=== PATIENT | male | born 1935 | race American Indian/Alaskan Native ===

== ENCOUNTER 2020-05-03 15:16 | Inpatient (IN) | payer MEDICARE ==
[2020-05-03] MEDS ORDERED: HYDROcodone/ACETAMINOPHEN 5-325 MG TAB PO ONE (16:15)
--- NOTE | 2020-05-03 16:20 | Emergency Department Report ---
ED Fall HPI - General Chief Complaint: Fall Stated Complaint: LT HIP PAIN Time Seen by Provider: 05/03/20 16:13 Source: patient Mode of arrival: Stretcher Limitations: No Limitations - History of Present Illness Initial Comments: CC: "I slipped and fell in the bathroom." HPI: This is an 85 yo female with hx of HTN DM who presents with head laceration and left hip pain after slipping on rug in bathroom. His son called 911 for assistance. He has moderately severe hip pain. He has pain with movement. He has difficulty moving the extremity. He has small amount of bleeding at the left posterior portion of the scalp. Patient struck his head on the tile floor. No LOC. Not on anticoagulation. Takes daily aspirin. Mr. Milian lives with his and son. Complaint: fall -: Sudden, This afternoon Fall From: standing When Fall Occurred: just prior to arrival Fall Witnessed: yes, by family Place Fall Occurred: home Loss of Consciousness: none Prolonged Down Time?: no Symptoms Prior to Fall: none Location: head, other (Left hip) Location - Extremities: Left: Leg (Left hip) Severity: moderate Quality: aching Context: tripped/slipped Associated Symptoms: denies - Related Data Allergies Allergy/AdvReac Type Severity Reaction Status Date / Time No Known Allergies Allergy Verified 05/03/20 16:08 ED Review of Systems ROS: Stated complaint: LT HIP PAIN Other details as noted in HPI Comment: All other systems reviewed and negative Constitutional: denies: fever, malaise Respiratory: denies: cough Cardiovascular: denies: chest pain Gastrointestinal: denies: abdominal pain Neurological: denies: headache, numbness, paresthesias ED Past Medical Hx - Past Medical History Previous Medical History?: Yes Hx Hypertension: Yes Hx Diabetes: Yes - Family History Family history: no significant - Social History Smoking Status: Former Smoker Substance Use Type: None ED Physical Exam - General Limitations: No Limitations General appearance: alert, in no apparent distress, other (Pleasant GCS 15 alert and oriented x4) - Head Head exam: Present: atraumatic, normocephalic, other (Left parietal scalp 1 cm puncture wound without any bleeding) - Eye Eye exam: Present: normal appearance - ENT ENT exam: Present: mucous membranes moist - Neck Neck exam: Present: normal inspection, full ROM - Respiratory Respiratory exam: Present: normal lung sounds bilaterally. Absent: respiratory distress, wheezes, rales, stridor - Cardiovascular Cardiovascular Exam: Present: regular rate, normal rhythm, normal heart sounds. Absent: systolic murmur, diastolic murmur, rubs, gallop - GI/Abdominal GI/Abdominal exam: Present: soft, normal bowel sounds. Absent: distended, tenderness, guarding, rebound - Rectal Rectal exam: Present: deferred - Expanded Lower Extremity Exam Left Hip exam: Present: tenderness (Patient is unable to flex at the left hip). Absent: swelling, abrasion, laceration, ecchymosis Upper Leg exam: Present: normal inspection, full ROM. Absent: tenderness, swelling Knee exam: Present: normal inspection, full ROM Lower Leg exam: Present: normal inspection, full ROM Ankle exam: Present: normal inspection, full ROM Foot/Toe exam: Present: normal inspection, full ROM Neuro vascular tendon exam: Present: no vascular compromise - Back Exam Back exam: Present: normal inspection - Neurological Exam Neurological exam: Present: alert, oriented X3 - Psychiatric Psychiatric exam: Present: normal affect, normal mood - Skin Skin exam: Present: warm, dry, intact, normal color. 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 Closed left femoral neck fracture: Dr. Figueroa orthopedic surgeon consulted. Extremity is neurovascularly intact 2. small puncture scalp wound, suture repair not indicated Critical care attestation.: If time is entered above; I have spent that time in minutes in the direct care of this critically ill patient, excluding procedure time. ED Disposition Clinical Impression: Closed fracture of neck of left femur, Scalp wound Disposition: OP ADMIT IP TO THIS HOSP Is pt being admited?: Yes Does the pt Need Aspirin: No Condition: Stable
--- NOTE | 2020-05-03 17:12 | XRay Report ---
LEFT HIP 3 VIEW(S) INDICATION / CLINICAL INFORMATION: Fall COMPARISON: None available. FINDINGS: Suboptimal examination. BONES / JOINT(S): There is a small linear lucency extending from the medial aspect of the left femora l neck and potentially extending to the lateral femoral head. Moderate to advanced bilateral femoroac etabular joint degenerative arthrosis. SOFT TISSUES: No significant abnormality. ADDITIONAL FINDINGS: None. IMPRESSION: 1. Small linear lucency extending through the left femoral neck is suspicious for nondisplaced fractu re. Signer Name: Fady Funes MD Signed: 05/03/2020 5:07 PM Workstation Name: [id number]
[2020-05-03] MEDS ORDERED: ONDANSETRON 4 MG/2 ML INJ IV ONE (17:31)
[2020-05-03] MEDS ORDERED: MORPHINE 4 MG/1 ML INJ IV ONE (17:31)
[2020-05-03 18:27] LABS: Hematocrit 41.2 % (35.5-45.6); Hemoglobin 14.5 gm/dl (11.8-15.2); Mean Corpuscular HGB Conc 35 % (32-34); Mean Corpuscular Volume 101 fl (84-94); Red Blood Count 4.06 M/mm3 (3.65-5.03); Red Cell Distribution Width 14.6 % (13.2-15.2)
[2020-05-03 18:33] LABS: Platelet Count 99 K/mm3 (140-440)
[2020-05-03 18:35] LABS: INR 1.14 (0.87-1.13); Partial Thromboplastin Time 27.1 Sec. (24.2-36.6)
--- NOTE | 2020-05-03 18:43 | XRay Report ---
CHEST 1 VIEW 05/03/2020 5:28 PM INDICATION / CLINICAL INFORMATION: Fall. COMPARISON: None available. FINDINGS: SUPPORT DEVICES: None. HEART / MEDIASTINUM: No significant abnormality. LUNGS / PLEURA: No significant pulmonary or pleural abnormality. No pneumothorax. ADDITIONAL FINDINGS: No significant additional findings. IMPRESSION: No acute cardiopulmonary abnormality. Signer Name: Fady Funes MD Signed: 05/03/2020 6:39 PM Workstation Name: [id number]
[2020-05-03 18:49] LABS: Alanine Aminotransferase 21 units/L (7-56); Albumin 3.9 g/dL (3.9-5); BUN/Creatinine Ratio 18; Blood Urea Nitrogen 23 mg/dL (9-20); Calcium 9.4 mg/dL (8.4-10.2); Hemolysis Index 9
[2020-05-03] MEDS ORDERED: MORPHINE 4 MG/1 ML INJ IV PRN (18:55)
[2020-05-03] MEDS ORDERED: oxyCODONE /ACETAMINOPHEN 5-325MG TAB PO PRN (18:55)
[2020-05-03] MEDS ORDERED: ONDANSETRON 4 MG/2 ML INJ IV PRN (18:55)
[2020-05-03] MEDS ORDERED: ACETAMINOPHEN 325 MG TAB PO PRN (18:55)
[2020-05-03] MEDS ORDERED: ALBUTEROL 2.5 MG/3 ML NEBU IH PRN (18:55)
--- NOTE | 2020-05-03 18:56 | Cat Scan Report ---
CT PELVIS AND LEFT HIP WITHOUT CONTRAST INDICATION / CLINICAL INFORMATION: femoral neck fracture. TECHNIQUE: Axial CT images were obtained through the pelvis and left hip without contrast. All CT scans at this location are performed using CT dose reduction for ALARA by means of automated exposure control. COMPARISON: None available. FINDINGS: There is a nondisplaced fracture of the left femoral neck which extends from the basicervic al region medially to the subcapital region laterally. No additional fractures are seen. There is no dislocation. Moderate to advanced bilateral femoroacetabular joint degenerative arthrosis is identifi ed. There is subcutaneous inflammation/edema overlying the left hip. Evaluation of the intrapelvic st ructures demonstrates severe prostatomegaly and moderate to severe calcific atherosclerosis. IMPRESSION: 1. Nondisplaced left femoral neck fracture as described above. 2. Prostatomegaly. Signer Name: Fady Funes MD Signed: 05/03/2020 6:52 PM Workstation Name: [id number]
--- NOTE | 2020-05-03 18:56 | History and Physical Report ---
History of Present Illness Chief complaint: I slipped and fell down History of present illness: 85 YO Male with HTN, DM, Severe Malnutrition, Osteopenia presents to ED for evaluation. PT states that he slipped on a rug in his bathroom and landed on his left side. Patient states that he felt immediate pain in his left hip and was unable to stand and experienced difficulty moving his left leg. EMS notified and upon arrival the patient was found to be in distress and subsequently transported to [facility] for further care and evaluation of the aforementioned symptoms. Patient seen and evaluated in the emergency department. Lab and imaging studies reviewed. Patient underwent hip x-ray which revealed a left hip fracture. Orthopedic surgery service consulted in ED. Patient admitted to surgical floor for further care and evaluation. Surgical intervention as per surgical team. Patient denies fever, chills, chest pain, palpitations, productive cough, skin rash, recent ill contacts, loss of consciousness, seizur e, loss of bowel/bladder continence, recent ill contacts, or known exposure to COVID-19. No prior admission for review. No medication listed at time of admission for reconciliation. Advanced care planning conducted in ED. Past History Past Medical History: diabetes, hypertension Past Surgical History: No surgical history, Other (Reviewed) Social history: , lives with family. denies: smoking, alcohol abuse, prescription drug abuse Family history: diabetes, hypertension Medications and Allergies Allergies Allergy/AdvReac Type Severity Reaction Status Date / Time No Known Allergies Allergy Verified 05/03/20 16:08 Active Meds: Active Medications Acetaminophen (Tylenol) 650 mg PO Q4H PRN PRN Reason: Pain MILD(1-3)/Fever >100.5/GALLO Albuterol (Proventil) 2.5 mg IH Q4HRT PRN PRN Reason: Shortness Of Breath Ondansetron HCl (Zofran) 4 mg IV Q8H PRN PRN Reason: Nausea And Vomiting Sodium Chloride (Sodium Chloride Flush Syringe 10 Ml) 10 ml IV BID DELIA Sodium Chloride (Sodium Chloride Flush Syringe 10 Ml) 10 ml IV PRN PRN PRN Reason: LINE FLUSH Review of Systems Constitutional: no weight loss, no weight gain, no fever, no chills Ears, nose, mouth and throat: no ear pain, no ear discharge, no decreased hearing Cardiovascular: no chest pain, no orthopnea, no palpitations, no rapid/irregular heart beat, no syncope, no lightheadedness Respiratory: no cough, no shortness of breath, no dyspnea on exertion Gastrointestinal: no abdominal pain, no nausea, no vomiting, no diarrhea, no coffee ground emesis Genitourinary Male: no hematuria, no flank pain, no discharge, no urinary hesitancy, no incontinence Rectal: no pain, no incontinence Musculoskeletal: other (Left hip pain), no neck pain, no shooting leg pain Integumentary: no rash, no pruritis, no redness, no sores, no wounds Neurological: no head injury, no paralysis, no parathesias, no tingling, no seizures, no tremors, no lack of coordination Psychiatric: no anxiety, no sleep disturbances, no insomnia, no change in appetite, no change in libido, no suicidal ideation Endocrine: no cold intolerance, no polyphagia, no polydipsia, no nocturia, no flushing Hematologic/Lymphatic: no easy bruising, no easy bleeding Exam - Constitutional Vitals: Temp Pulse Resp BP Pulse Ox 99.2 F 117 H 14 163/87 97 05/03/20 15:20 05/03/20 15:20 05/03/20 15:20 05/03/20 15:20 05/03/20 15:20 General appearance: Present: mild distress, cachectic - EENT Eyes: Present: PERRL ENT: hearing intact, clear oral mucosa - Neck Neck: Present: supple, normal ROM - Respiratory Respiratory effort: normal Respiratory: bilateral: CTA - Cardiovascular Heart Sounds: Present: S1 & S2. Absent: rub, click - Extremities Extremities: pulses symmetrical, No edema Extremity abnormal: other (Left hip pain) Peripheral Pulses: within normal limits - Abdominal General gastrointestinal: Present: soft, non-tender, non-distended, normal bowel sounds Male genitourinary: Present: normal - Integumentary Integumentary: Present: clear, warm, dry - Musculoskeletal Musculoskeletal: gait normal, strength equal bilaterally - Psychiatric Psychiatric: appropriate mood/affect, intact judgment & insight - Neurologic Neurologic: CNII-XII intact, moves all extremities Results - Labs CBC & Chem 7: 05/03/20 18:04 05/03/20 18:04 Labs: Abnormal lab results 05/03/20 05/03/20 05/03/20 Range/Units 18:04 18:04 18:04 MCV 101 H (84-94) fl MCH 36 H (28-32) pg MCHC 35 H (32-34) % Plt Count 99 L (140-440) K/mm3 INR 1.14 H (0.87-1.13) Carbon Dioxide 19 L (22-30) mmol/L BUN 23 H (9-20) mg/dL Glucose 121 H (75-100) mg/dL Assessment and Plan - Patient Problems (1) Closed fracture of neck of left femur Current Visit: Yes Status: Acute Qualifiers: Encounter type: initial encounter Qualified Code(s): S72.002A - Fracture of unspecified part of neck of left femur, initial encounter for closed fracture Plan to address problem: Pain control, orthopedic surgery service consulted, surgery as per orthopedic surgery team. Nonweightbearing to left lower extremity. (2) Hypertension Current Visit: Yes Status: Acute Qualifiers: Hypertension type: essential hypertension Qualified Code(s): I10 - Essential (primary) hypertension Plan to address problem: Monitor blood pressure every shift, continue medical management. (3) Diabetes Current Visit: Yes Status: Acute Plan to address problem: Sliding scale insulin therapy, Accu-Chek, consistent carbohydrate diet, hypoglycemia protocol. (4) Severe malnutrition Current Visit: Yes Status: Acute Plan to address problem: Increase protein intake, dietary supplementation. (5) DVT prophylaxis Current Visit: Yes Status: Acute Plan to address problem: SCD to bilateral lower extremities while in bed, anticoagulation as per orthopedic surgery service. (6) Advance care planning Current Visit: Yes Status: Acute Plan to address problem: Disease education conducted, patient is full code, prognosis discussed, patient acknowledges understanding and agreement with care plan, +30 minutes.
[2020-05-03] MEDS ORDERED: DEXTROSE 50% IN WATER (25GM) 50 ML SYRINGE IV PRN (19:46)
[2020-05-03 21:16] LABS: Basophils % (Manual) 0 % (0.0-1.8); Eosinophils % (Manual) 0 % (0.0-4.3); Total Cells Counted 100
[2020-05-03 21:17] LABS: Ovalocytes Rare; Platelet Estimate Consistent w Auto
[2020-05-03] MEDS: INSULIN LISPRO 100 UNIT/ML VIAL 3 mL SUB-Q SCH (22:16)
[2020-05-03] MEDS: SODIUM CHLORIDE 0.9% 1000 ML 1,000 ML IV SCH (22:25)
[2020-05-04 05:08] LABS: BUN/Creatinine Ratio 18; Blood Urea Nitrogen 21 mg/dL (9-20); Calcium 8.7 mg/dL (8.4-10.2); Hemolysis Index 1
[2020-05-04] MEDS: INSULIN LISPRO 100 UNIT/ML VIAL 3 mL SUB-Q SCH ×5 (07:30→21:58)
[2020-05-04] MEDS: SODIUM CHLORIDE 0.9% 1000 ML 1,000 ML IV SCH (07:39)
[2020-05-04] MEDS: PRAZOSIN 1 MG CAP PO SCH ×2 (10:17→22:28)
[2020-05-04] MEDS ORDERED: LACTATED RINGERS 1,000 ML ONE (14:21)
[2020-05-04] MEDS ORDERED: ONDANSETRON 4 MG/2 ML INJ IV PRN (14:46)
[2020-05-04] MEDS ORDERED: HYDROmorphone 1 MG/1 ML INJ IV PRN ×2 (14:46)
--- NOTE | 2020-05-04 14:48 | Anesthesia Day of Surgery ---
Anesthesia Day of Surgery - Day of Surgery Patient Examined: Yes Patient H&P Reviewed: Yes Patient is NPO: Yes
--- NOTE | 2020-05-04 14:49 | Anesthesia Consultation ---
Anesthesia Consult and Med Hx Date of service: 05/04/20 - Airway Anesthetic Teeth Evaluation: Crowns ROM Head & Neck: Adequate Mental/Hyoid Distance: Adequate Mallampati Class: Class II Intubation Access Assessment: Good - Pre-Operative Health Status ASA Pre-Surgery Classification: ASA3 Proposed Anesthetic Plan: General (SAB; GA if needed), Spinal - Pulmonary Hx Respiratory Symptoms: No (+2FS) - Cardiovascular System Hx Hypertension: Yes - Central Nervous System Hx Psychiatric Problems: No - Endocrine Hx Non-Insulin Dependent Diabetes: Yes
[2020-05-04] MEDS ORDERED: propofoL 200 MG/20 ML VIAL IV ONE (14:50)
[2020-05-04] MEDS: LACTATED RINGERS 1,000 ML IV SCH (15:00)
[2020-05-04] MEDS ORDERED: ceFAZolin/STERILE WATER 2 GM/20 ML SYRINGE IV NR (15:00)
--- NOTE | 2020-05-04 15:16 | Progress Note ---
Assessment and Plan - Patient Problems (1) Closed fracture of neck of left femur Current Visit: Yes Status: Acute Qualifiers: Encounter type: initial encounter Qualified Code(s): S72.002A - Fracture of unspecified part of neck of left femur, initial encounter for closed fracture Plan to address problem: - Orthopedic surgery consulted - Surgical intervention planned 05/04, and Ancef 2 mg preop - Nonweightbearing of left lower extremity - 05/[address] shows there is a nondisplaced fracture of the left femoral neck which extends from the basicervical region medially to the subcapital region laterally. No additional fractures are seen. There is no dislocation. 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 There is subcutaneous inflammation/edema overlying the left hip. Evaluation of the intrapelvic structures demonstrates severe prostatomegaly and moderate to severe calcific atherosclerosis. Prostatomegaly. - 05/03 Left hip xray shows Small linear lucency extending through the left femoral neck is suspicious for nondisplaced fracture. - 05/03 CT pelvis shows there is a nondisplaced fracture of the left femoral neck which extends from the basicervical region medially to the subcapital region laterally. No additional fractures are seen. There is no dislocation. 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 There is subcutaneous inflammation/edema overlying the left hip. Evaluation of the intrapelvic structures demonstrates severe prostatomegaly and moderate to severe calcific atherosclerosis. Prostatomegaly. (2) Scalp wound Current Visit: Yes Status: Acute Qualifiers: Open wound type: laceration Plan to address problem: -Sustained from ground-level fall prior to admit -Dressing changes per nursing (3) Diabetes Current Visit: Yes Status: Chronic Plan to address problem: -Hemoglobin A1c pending -Accu-Cheks AC at bedtime -SSI -CC diet when NPO -Hypoglycemia protocol -Patient states he has been off of his glipizide since 2018 per PCP (4) Hypertension Current Visit: Yes Status: Acute Qualifiers: Hypertension type: essential hypertension Qualified Code(s): I10 - Essential (primary) hypertension Plan to address problem: -Blood pressure monitor per protocol -We will restart Cozaar as needed (5) Severe malnutrition Current Visit: Yes Status: Acute Plan to address problem: -Increase protein intake -Dietary supplementation when able to restart diet -NTR consult (6) HLD (hyperlipidemia) Current Visit: Yes Status: Chronic Plan to address problem: -Started on home statin -Denies history of VT x2 however holding aspirin at this time in setting of pending orthopedic surgery (7) DVT prophylaxis Current Visit: Yes Status: Acute Plan to address problem: - SCDs to bilateral LE -Holding chemical prophylaxis in setting of pending orthopedic surgery. History Interval history: 85 YO Male with HTN, DM, Severe Malnutrition, Osteopenia, VT x2 (1973, 1977) presents to ED for evaluation on on 05/03 after he slipped on a rug in his bathroom and landed on his left side where he felt immediate pain in his left hip and was unable to stand and experienced difficulty moving his left leg. Patient underwent hip x-ray which revealed a left hip fracture. Orthopedic surgery service consulted in ED. Patient admitted to surgical floor for further care and evaluation. He is scheduled for a surgical intervention as per surgical team at 3 PM.. The time of my exam he only complains of pain on his left side with laying flat. Hospitalist Physical - Constitutional Vitals: Temp Pulse Resp BP Pulse Ox 97.1 F L 64 19 96/57 100 05/04/20 11:00 05/04/20 11:00 05/04/20 11:00 05/04/20 11:00 05/04/20 11:00 General appearance: Present: no acute distress, cachectic - EENT Eyes: Present: EOM intact ENT: hearing decreased - Neck Neck: Present: supple, normal ROM - Respiratory Respiratory effort: normal Respiratory: bilateral: CTA - Cardiovascular Rhythm: regular Heart Sounds: Present: S1 & S2. Absent: systolic murmur, diastolic murmur - Extremities Extremities: no ischemia, pulses intact, pulses symmetrical, No edema, normal temperature, normal color Extremity abnormal: other (Painful left lower extremity with movement) Peripheral Pulses: within normal limits - Abdominal General gastrointestinal: soft, non-tender, non-distended, normal bowel sounds - Integumentary Integumentary: Present: clear, warm, dry - Psychiatric Psychiatric: appropriate mood/affect, memory intact - Neurologic Neurologic: CNII-XII intact, no focal deficits, no moves all extremities (Painful movement to left lower extremity) Results - Labs CBC & Chem 7: 05/03/20 18:04 05/04/20 04:09 Labs: Laboratory Last Values WBC 7.3 K/mm3 (4.5-11.0) 05/03/20 18:04 RBC 4.06 M/mm3 (3.65-5.03) 05/03/20 18:04 Hgb 14.5 gm/dl (11.8-15.2) 05/03/20 18:04 Hct 41.2 % (35.5-45.6) 05/03/20 18:04 MCV 101 fl (84-94) H 05/03/20 18:04 MCH 36 pg (28-32) H 05/03/20 18:04 MCHC 35 % (32-34) H 05/03/20 18:04 RDW 14.6 % (13.2-15.2) 05/03/20 18:04 Plt Count 99 K/mm3 (140-440) L 05/03/20 18:04 Add Manual Diff Complete 05/03/20 18:04 Total Counted 100 05/03/20 18:04 Seg Neutrophils % Account Planner 05/03/20 18:04 Seg Neuts % (Manual) 90.0 % (40.0-70.0) H 05/03/20 18:04 Band Neutrophils % 0 % 05/03/20 18:04 Lymphocytes % (Manual) 5.0 % (13.4-35.0) L 05/03/20 18:04 Reactive Lymphs % (Man) 0 % 05/03/20 18:04 Monocytes % (Manual) 5.0 % (0.0-7.3) 05/03/20 18:04 Eosinophils % (Manual) 0 % (0.0-4.3) 05/03/20 18:04 Basophils % (Manual) 0 % (0.0-1.8) 05/03/20 18:04 Metamyelocytes % 0 % 05/03/20 18:04 Myelocytes % 0 % 05/03/20 18:04 Promyelocytes % 0 % 05/03/20 18:04 Blast Cells % 0 % 05/03/20 18:04 Nucleated RBC % Not Reportable 05/03/20 18:04 Seg Neutrophils # Man 6.6 K/mm3 (1.8-7.7) 05/03/20 18:04 Band Neutrophils # 0.0 K/mm3 05/03/20 18:04 Lymphocytes # (Manual) 0.4 K/mm3 (1.2-5.4) L 05/03/20 18:04 Abs React Lymphs (Man) 0.0 K/mm3 05/03/20 18:04 Monocytes # (Manual) 0.4 K/mm3 (0.0-0.8) 05/03/20 18:04 Eosinophils # (Manual) 0.0 K/mm3 (0.0-0.4) 05/03/20 18:04 Basophils # (Manual) 0.0 K/mm3 (0.0-0.1) 05/03/20 18:04 Metamyelocytes # 0.0 K/mm3 05/03/20 18:04 Myelocytes # 0.0 K/mm3 05/03/20 18:04 Promyelocytes # 0.0 K/mm3 05/03/20 18:04 Blast Cells # 0.0 K/mm3 05/03/20 18:04 WBC Morphology Not Reportable 05/03/20 18:04 Hypersegmented Neuts Not Reportable 05/03/20 18:04 Hyposegmented Neuts Not Reportable 05/03/20 18:04 Hypogranular Neuts Not Reportable 05/03/20 18:04 Smudge Cells Not Reportable 05/03/20 18:04 Toxic Granulation Not Reportable 05/03/20 18:04 Toxic Vacuolation Not Reportable 05/03/20 18:04 Dohle Bodies Not Reportable 05/03/20 18:04 Pelger-Huet Anomaly Not Reportable 05/03/20 18:04 Ganga Rods Not Reportable 05/03/20 18:04 Platelet Estimate Consistent w auto 05/03/20 18:04 Clumped Platelets Not Reportable 05/03/20 18:04 Plt Clumps, EDTA Not Reportable 05/03/20 18:04 Large Platelets Not Reportable 05/03/20 18:04 Giant Platelets Not Reportable 05/03/20 18:04 Platelet Satelliting Not Reportable 05/03/20 18:04 Plt Morphology Comment Not Reportable 05/03/20 18:04 RBC Morphology Not Reportable 05/03/20 18:04 Dimorphic RBCs Not Reportable 05/03/20 18:04 Polychromasia Not Reportable 05/03/20 18:04 Hypochromasia Not Reportable 05/03/20 18:04 Poikilocytosis Not Reportable 05/03/20 18:04 Anisocytosis Not Reportable 05/03/20 18:04 Microcytosis Not Reportable 05/03/20 18:04 Macrocytosis Not Reportable 05/03/20 18:04 Spherocytes Not Reportable 05/03/20 18:04 Pappenheimer Bodies Not Reportable 05/03/20 18:04 Sickle Cells Not Reportable 05/03/20 18:04 Target Cells Not Reportable 05/03/20 18:04 Tear Drop Cells Not Reportable 05/03/20 18:04 Ovalocytes Rare 05/03/20 18:04 Helmet Cells Not Reportable 05/03/20 18:04 Flowers-Creola Bodies Not Reportable 05/03/20 18:04 [place] Rings Not Reportable 05/03/20 18:04 Yovani Cells Not Reportable 05/03/20 18:04 Bite Cells Not Reportable 05/03/20 18:04 Crenated Cell Not Reportable 05/03/20 18:04 Elliptocytes Not Reportable 05/03/20 18:04 Acanthocytes (Spur) Not Reportable 05/03/20 18:04 Rouleaux Not Reportable 05/03/20 18:04 Hemoglobin C Crystals Not Reportable 05/03/20 18:04 Schistocytes Not Reportable 05/03/20 18:04 Malaria parasites Not Reportable 05/03/20 18:04 Dg Bodies Not Reportable 05/03/20 18:04 Hem Pathologist Commnt No 05/03/20 18:04 PT 14.8 Sec. (12.2-14.9) 05/03/20 18:04 INR 1.14 (0.87-1.13) H 05/03/20 18:04 APTT 27.1 Sec. (24.2-36.6) 05/03/20 18:04 Sodium 143 mmol/L (137-145) 05/04/20 04:09 Potassium 4.1 mmol/L (3.6-5.0) 05/04/20 04:09 Chloride 109.3 mmol/L (98-107) H 05/04/20 04:09 Carbon Dioxide 22 mmol/L (22-30) 05/04/20 04:09 Anion Gap 16 mmol/L 05/04/20 04:09 BUN 21 mg/dL (9-20) H 05/04/20 04:09 Creatinine 1.2 mg/dL (0.8-1.3) 05/04/20 04:09 Estimated GFR > 60 ml/min 05/04/20 04:09 BUN/Creatinine Ratio 18 % 05/04/20 04:09 Glucose 113 mg/dL (75-100) H 05/04/20 04:09 POC Glucose 114 (70-105) H 05/04/20 15:03 Calcium 8.7 mg/dL (8.4-10.2) 05/04/20 04:09 Total Bilirubin 0.70 mg/dL (0.1-1.2) 05/03/20 18:04 AST 28 units/L (5-40) 05/03/20 18:04 ALT 21 units/L (7-56) 05/03/20 18:04 Alkaline Phosphatase 77 units/L (35-129) 05/03/20 18:04 Total Protein 6.9 g/dL (6.3-8.2) 05/03/20 18:04 Albumin 3.9 g/dL (3.9-5) 05/03/20 18:04 Albumin/Globulin Ratio 1.3 % 05/03/20 18:04 [place]/IV: Voiding Method Urinal IV Catheter Type [Left Forearm INT / Saline Lock ] Active Medications - Current Medications Current Medications: Generic Name Dose Route Start Last Admin Trade Name Freq PRN Reason Stop Dose Admin Acetaminophen 650 mg 05/03/20 18:55 Tylenol PO Q4H PRN Pain MILD(1-3)/Fever >100.5/GALLO Albuterol 2.5 mg 05/03/20 18:55 Proventil IH Q4HRT PRN Shortness Of Breath Cefazolin Sodium 2 gm 05/04/20 15:00 Ancef/Sterile Water 2 Gm/20 Ml IV 05/05/20 23:00 PREOP NR Dextrose 50 ml 05/03/20 19:46 D50w (25gm) Syringe IV Q30MIN PRN Hypoglycemia Protocol Hydromorphone HCl 0.25 mg 05/04/20 14:46 Dilaudid IV 05/04/20 23:00 Q10MIN PRN Pain, Moderate (4-6) Hydromorphone HCl 0.5 mg 05/04/20 14:46 Dilaudid IV 05/04/20 23:00 Q10MIN PRN Pain , Severe (7-10) Sodium Chloride 1,000 mls @ 100 mls/hr 05/03/20 19:00 05/04/20 07:39 Nacl 0.9% 1000 Ml IV 100 mls/hr DIRECT DELIA Administration Lactated Ringer's 1,000 mls @ 125 mls/hr 05/04/20 15:00 05/04/20 15:00 Lactated Ringers IV 125 mls/hr DIRECT DELIA Administration Insulin Human Lispro 0 unit 05/03/20 22:00 05/04/20 11:56 Humalog SUB-Q Not Given ACHS [facility] Protocol Morphine Sulfate 2 mg 05/03/20 18:55 Morphine IV Q4H PRN Pain , Severe (7-10) Ondansetron HCl 4 mg 05/03/20 18:55 Zofran IV Q8H PRN Nausea And Vomiting Ondansetron HCl 4 mg 05/04/20 14:46 Zofran IV 05/04/20 23:00 ONCE PRN Nausea And Vomiting Oxycodone/Acetaminophen 1 tab 05/03/20 18:55 Percocet 5/325 PO Q6H PRN Pain, Moderate (4-6) Pravastatin Sodium 80 mg 05/04/20 22:00 Pravachol PO QHS DELIA Prazosin HCl 1 mg 05/04/20 10:00 05/04/20 10:17 Prazosin PO Not Given Q12HR DELIA Sodium Chloride 10 ml 05/03/20 22:00 05/04/20 10:17 Sodium Chloride Flush Syringe 10 Ml IV 10 ml BID DELIA Administration Sodium Chloride 10 ml 05/03/20 18:55 Sodium Chloride Flush Syringe 10 Ml IV PRN PRN LINE FLUSH
[2020-05-04] MEDS ORDERED: BUPIVACAINE/PF (0.5%) 5 MG/1 ML 30 ML VIAL INFILTRATI ONE ×2 (15:31→16:09)
[2020-05-04] MEDS ORDERED: SODIUM CHLORIDE 0.9% IRR 1,500 ML BOTTLE IR ONE (16:10)
--- NOTE | 2020-05-04 16:39 | Consultation ---
History of Present Illness - HPI Consult date: 05/04/20 Consult reason: fracture (85 y/o male with c/o left hip pain after a fall at son's house yesterday, bought to the ED where xrays taken revealed impacted left femoral neck fracture) Past History Past Medical History: diabetes, hypertension Past Surgical History: No surgical history, Other (Reviewed) Social history: , lives with family. denies: smoking, alcohol abuse, prescription drug abuse Family history: diabetes, hypertension Medications and Allergies Allergies Allergy/AdvReac Type Severity Reaction Status Date / Time No Known Allergies Allergy Verified 05/03/20 16:08 Home Medications Medication Instructions Recorded Confirmed Last Taken Type Aspirin [Adult Aspirin] 81 mg PO DAILY 05/04/20 05/04/20 Unknown History Losartan [Cozaar] 50 mg PO QDAY 05/04/20 05/04/20 Unknown History Simvastatin 80 mg PO HS 05/04/20 05/04/20 Unknown History Terazosin HCl 2 mg PO HS 05/04/20 05/04/20 Unknown History Active Meds: Active Medications Acetaminophen (Tylenol) 650 mg PO Q4H PRN PRN Reason: Pain MILD(1-3)/Fever >100.5/GALLO Albuterol (Proventil) 2.5 mg IH Q4HRT PRN PRN Reason: Shortness Of Breath Cefazolin Sodium (Ancef/Sterile Water 2 Gm/20 Ml) 2 gm IV PREOP NR Stop: 05/05/20 23:00 Dextrose (D50w (25gm) Syringe) 50 ml IV Q30MIN PRN; Protocol PRN Reason: Hypoglycemia Hydromorphone HCl (Dilaudid) 0.25 mg IV Q10MIN PRN PRN Reason: Pain, Moderate (4-6) Stop: 05/04/20 23:00 Hydromorphone HCl (Dilaudid) 0.5 mg IV Q10MIN PRN PRN Reason: Pain , Severe (7-10) Stop: 05/04/20 23:00 Sodium Chloride (Nacl 0.9% 1000 Ml) 1,000 mls @ 100 mls/hr IV DIRECT DELIA Last Admin: 05/04/20 07:39 Dose: 100 mls/hr Documented by: Lactated Ringer's (Lactated Ringers) 1,000 mls @ 125 mls/hr IV DIRECT DELIA Last Admin: 05/04/20 15:00 Dose: 125 mls/hr Documented by: Insulin Human Lispro (Humalog) 0 unit SUB-Q ACHS [facility]; Protocol Last Admin: 05/04/20 11:56 Dose: Not Given Documented by: Morphine Sulfate (Morphine) 2 mg IV Q4H PRN PRN Reason: Pain , Severe (7-10) Ondansetron HCl (Zofran) 4 mg IV Q8H PRN PRN Reason: Nausea And Vomiting Ondansetron HCl (Zofran) 4 mg IV ONCE PRN PRN Reason: Nausea And Vomiting Stop: 05/04/20 23:00 Oxycodone/Acetaminophen (Percocet 5/325) 1 tab PO Q6H PRN PRN Reason: Pain, Moderate (4-6) Pravastatin Sodium (Pravachol) 80 mg PO QHS [facility] Prazosin HCl (Prazosin) 1 mg PO Q12HR [facility] Last Admin: 05/04/20 10:17 Dose: Not Given Documented by: Sodium Chloride (Sodium Chloride Flush Syringe 10 Ml) 10 ml IV BID [facility] Last Admin: 05/04/20 10:17 Dose: 10 ml Documented by: Sodium Chloride (Sodium Chloride Flush Syringe 10 Ml) 10 ml IV PRN PRN PRN Reason: LINE FLUSH Physical Examination - Physical exam Narrative exam: left LE - no obvious shortening, tender at groin, decreased AROM distal n/v intact Assessment and Plan Impacted left femoral neck fracture recommend fixation with cannulated screws, PT for gait training
--- NOTE | 2020-05-04 16:43 | Procedure Note ---
Date of procedure: 05/04/20 Pre-op diagnosis: Impacted left femoral neck fracture Post-op diagnosis: same Procedure: Closed reduction insertion of cannulated screws left hip Procedure The patient was brought to the OR on the hospital bed next patient was turned onto his right lateral decubitus position at which point spinal anesthesia was induced patient was then turned supine on the OR table next the patient's left lower extremity was prepped and draped in the usual sterile manner. A timeout procedure was done to identify the patient and the correct operative site using C-arm fluoroscopy a guidewire was then placed over the anterior surface of the patient's hip under C-arm visualization to obtain the exact entry site for guidepin next a 3.2 threaded guide pin was inserted along the lateral border the proximal femur up through the femoral neck into the head with the images were checked via AP and lateral views showing good position next the targeting device was used to insert 2 the 2 remaining threaded guidewires or pins following this stab wounds were made and measurements were obtained three7.0 cannulated screws measuring 90 mm 95 and 100 mm in length were inserted percutaneously images were checked the AP and lateral views and showed good positioning of her implants next the guide pins were removed stab wounds were repaired routine postop dressings were applied patient tolerated procedure there were no complications he was sent to postanesthesia recovery in a stable condition Anesthesia: spinal Surgeon: DEQUAN STREET Estimated blood loss: minimal Pathology: none Condition: stable Disposition: PACU
[2020-05-04] MEDS ORDERED: LIDOCAINE MPF (2%) 20 MG/1 ML VIAL 5 ML ONE (16:46)
--- NOTE | 2020-05-04 16:56 | XRay Report ---
INTRAOPERATIVE FLUOROSCOPY: LEFT HIP INDICATION / CLINICAL INFORMATION: LEFT HIP FX. TECHNIQUE: Intraoperative spot images were obtained during the procedure. FINDINGS: Intraoperative fluoroscopic views of the left hip demonstrate multiple lag screws traversing the left femoral neck. Fluoroscopy Time: 0.4 minutes. Fluoroscopy Images: 2. Signer Name: Fady Funes MD Signed: 05/04/2020 4:52 PM Workstation Name: [id number]
[2020-05-04] MEDS ORDERED: MEPERIDINE 25 MG/1 ML INJ IV PRN (17:05)
--- NOTE | 2020-05-04 17:05 | Post Anesthesia Evaluation ---
- Post Anesthesia Evaluation Patient Participated: Yes Airway Patent: Yes Stable Respiratory Function: Yes Nausea/Vomiting: No Temp > 96.8F: Yes Pain Manageable: Yes Adequeate Hydration: Yes Anesthesia Complications: No Block Receding Appropriately: Not Applicable Patient on Ventilator: No
[2020-05-04] MEDS ORDERED: MEPERIDINE 25 MG/1 ML INJ ONE (17:06)
[2020-05-04] MEDS ORDERED: HYDROcodone/ACETAMINOPHEN 5-325 MG TAB PO PRN (17:27)
[2020-05-04] MEDS ORDERED: oxyCODONE /ACETAMINOPHEN 5-325MG TAB PO PRN (17:27)
[2020-05-04] MEDS ORDERED: TERAZOSIN HCL 2 MG PO SCH (22:00)
[2020-05-04] MEDS ORDERED: PRAVASTATIN 80 MG TAB PO SCH (22:00)
[2020-05-04] MEDS ORDERED: SIMVASTATIN 80 MG PO SCH (22:00)
[2020-05-05] MEDS: LACTATED RINGERS 1,000 ML IV SCH ×2 (00:50→06:35)
[2020-05-05 05:27] LABS: Hematocrit 38.4 % (35.5-45.6); Hemoglobin 12.9 gm/dl (11.8-15.2); Mean Corpuscular HGB Conc 34 % (32-34); Mean Corpuscular Volume 103 fl (84-94); Red Blood Count 3.73 M/mm3 (3.65-5.03); Red Cell Distribution Width 14.4 % (13.2-15.2)
[2020-05-05 05:29] LABS: Alanine Aminotransferase 15 units/L (7-56); Albumin 3.4 g/dL (3.9-5); BUN/Creatinine Ratio 14; Blood Urea Nitrogen 15 mg/dL (9-20); Calcium 8.7 mg/dL (8.4-10.2); Hemolysis Index 9
[2020-05-05 05:31] LABS: Platelet Count 74 K/mm3 (140-440)
[2020-05-05] MEDS: INSULIN LISPRO 100 UNIT/ML VIAL 3 mL SUB-Q SCH (07:39)
[2020-05-05] MEDS ORDERED: LOSARTAN 50 MG TAB PO SCH (10:00)
[2020-05-05] MEDS ORDERED: ENOXAPARIN 40 MG/0.4 ML INJ SUB-Q SCH (10:00)
--- NOTE | 2020-05-05 10:23 | Progress Note ---
Assessment and Plan - Patient Problems (1) Closed fracture of neck of left femur Current Visit: Yes Status: Acute Qualifiers: Encounter type: initial encounter Qualified Code(s): S72.002A - Fracture of unspecified part of neck of left femur, initial encounter for closed fracture Plan to address problem: - Orthopedic surgery consulted - Surgical intervention planned 05/04, and Ancef 2 mg preop - Nonweightbearing of left lower extremity - 05/[address] shows there is a nondisplaced fracture of the left femoral neck which extends from the basicervical region medially to the subcapital region laterally. No additional fractures are seen. There is no dislocation. 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 There is subcutaneous inflammation/edema overlying the left hip. Evaluation of the intrapelvic structures demonstrates severe prostatomegaly and moderate to severe calcific atherosclerosis. Prostatomegaly. - 05/03 Left hip xray shows Small linear lucency extending through the left femoral neck is suspicious for nondisplaced fracture. - 05/03 CT pelvis shows there is a nondisplaced fracture of the left femoral neck which extends from the basicervical region medially to the subcapital region laterally. No additional fractures are seen. There is no dislocation. 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 There is subcutaneous inflammation/edema overlying the left hip. Evaluation of the intrapelvic structures demonstrates severe prostatomegaly and moderate to severe calcific atherosclerosis. Prostatomegaly. - 05/04 s/p fixation with cannulated screws of his left hip fracture - Awaiting PT evaluation and pending possible discharge (2) Scalp wound Current Visit: Yes Status: Acute Qualifiers: Open wound type: laceration Plan to address problem: -Sustained from ground-level fall prior to admit -Dressing changes per nursing (3) Diabetes Current Visit: Yes Status: Chronic Plan to address problem: -Hemoglobin A1c pending -Accu-Cheks AC at bedtime -SSI -CC diet when NPO -Hypoglycemia protocol -Patient states he has been off of his glipizide since 2018 per PCP (4) Hypertension Current Visit: Yes Status: Acute Qualifiers: Hypertension type: essential hypertension Qualified Code(s): I10 - Essential (primary) hypertension Plan to address problem: - Blood pressure monitor per protocol - Restarted Cristine (5) Severe malnutrition Current Visit: Yes Status: Acute Plan to address problem: -Increase protein intake -Dietary supplementation when able to restart diet -NTR consult (6) HLD (hyperlipidemia) Current Visit: Yes Status: Chronic Plan to address problem: -Started on home statin -Denies history of CA x2 however holding aspirin at this time in setting of pending orthopedic surgery (7) DVT prophylaxis Current Visit: Yes Status: Acute Plan to address problem: - SCDs to bilateral LE -Holding chemical prophylaxis in setting of pending orthopedic surgery. History Interval history: 85 YO Male with HTN, DM, Severe Malnutrition, Osteopenia, CA x2 (1973, 1977) presents to ED for evaluation on on 05/03 after he slipped on a rug in his bathroom and landed on his left side where he felt immediate pain in his left hip and was unable to stand and experienced difficulty moving his left leg. Patient underwent hip x-ray which revealed a left hip fracture. On 05/04 Dr. Figueroa performed a fixation with cannulated screws of his left hip fracture. Today he is seen laying in bed still complains of soreness. Home Cozaar was restarted for hypertension. Waiting PT evaluation and possible discharge today. 05/04: s/p fixation with cannulated screws, PT consulted for gait training Hospitalist Physical - Constitutional Vitals: Temp Pulse Resp BP Pulse Ox 99.0 F 78 19 142/61 93 05/05/20 09:34 05/05/20 09:34 05/05/20 09:34 05/05/20 09:34 05/05/20 09:34 General appearance: Present: no acute distress, cachectic - EENT ENT: clear oral mucosa, hearing decreased - Neck Neck: Present: supple, normal ROM - Respiratory Respiratory effort: normal Respiratory: bilateral: CTA - Cardiovascular Rhythm: regular Heart Sounds: Present: S1 & S2. Absent: systolic murmur, diastolic murmur - Extremities Extremities: no ischemia, pulses intact, pulses symmetrical, No edema, normal temperature, normal color, abnormal (Limited range of motion to left LE) Peripheral Pulses: within normal limits - Abdominal General gastrointestinal: soft, non-tender, non-distended, normal bowel sounds - Integumentary Integumentary: Present: clear (Left hip with surgical dressing clean, dry, intact), warm, dry - Psychiatric Psychiatric: appropriate mood/affect, cooperative - Neurologic Neurologic: CNII-XII intact, focal deficits - Allied Health Allied health notes reviewed: nursing Results - Labs CBC & Chem 7: 05/05/20 04:34 05/05/20 04:34 Labs: Laboratory Last Values WBC 4.4 K/mm3 (4.5-11.0) L 05/05/20 04:34 RBC 3.73 M/mm3 (3.65-5.03) 05/05/20 04:34 Hgb 12.9 gm/dl (11.8-15.2) 05/05/20 04:34 Hct 38.4 % (35.5-45.6) 05/05/20 04:34 MCV 103 fl (84-94) H 05/05/20 04:34 MCH 35 pg (28-32) H 05/05/20 04:34 MCHC 34 % (32-34) 05/05/20 04:34 RDW 14.4 % (13.2-15.2) 05/05/20 04:34 Plt Count 74 K/mm3 (140-440) L 05/05/20 04:34 Add Manual Diff Complete 05/03/20 18:04 Total Counted 100 05/03/20 18:04 Seg Neutrophils % Neonatal Critical Care Nurse 05/03/20 18:04 Seg Neuts % (Manual) 90.0 % (40.0-70.0) H 05/03/20 18:04 Band Neutrophils % 0 % 05/03/20 18:04 Lymphocytes % (Manual) 5.0 % (13.4-35.0) L 05/03/20 18:04 Reactive Lymphs % (Man) 0 % 05/03/20 18:04 Monocytes % (Manual) 5.0 % (0.0-7.3) 05/03/20 18:04 Eosinophils % (Manual) 0 % (0.0-4.3) 05/03/20 18:04 Basophils % (Manual) 0 % (0.0-1.8) 05/03/20 18:04 Metamyelocytes % 0 % 05/03/20 18:04 Myelocytes % 0 % 05/03/20 18:04 Promyelocytes % 0 % 05/03/20 18:04 Blast Cells % 0 % 05/03/20 18:04 Nucleated RBC % Not Reportable 05/03/20 18:04 Seg Neutrophils # Man 6.6 K/mm3 (1.8-7.7) 05/03/20 18:04 Band Neutrophils # 0.0 K/mm3 05/03/20 18:04 Lymphocytes # (Manual) 0.4 K/mm3 (1.2-5.4) L 05/03/20 18:04 Abs React Lymphs (Man) 0.0 K/mm3 05/03/20 18:04 Monocytes # (Manual) 0.4 K/mm3 (0.0-0.8) 05/03/20 18:04 Eosinophils # (Manual) 0.0 K/mm3 (0.0-0.4) 05/03/20 18:04 Basophils # (Manual) 0.0 K/mm3 (0.0-0.1) 05/03/20 18:04 Metamyelocytes # 0.0 K/mm3 05/03/20 18:04 Myelocytes # 0.0 K/mm3 05/03/20 18:04 Promyelocytes # 0.0 K/mm3 05/03/20 18:04 Blast Cells # 0.0 K/mm3 05/03/20 18:04 WBC Morphology Not Reportable 05/03/20 18:04 Hypersegmented Neuts Not Reportable 05/03/20 18:04 Hyposegmented Neuts Not Reportable 05/03/20 18:04 Hypogranular Neuts Not Reportable 05/03/20 18:04 Smudge Cells Not Reportable 05/03/20 18:04 Toxic Granulation Not Reportable 05/03/20 18:04 Toxic Vacuolation Not Reportable 05/03/20 18:04 Dohle Bodies Not Reportable 05/03/20 18:04 Pelger-Huet Anomaly Not Reportable 05/03/20 18:04 Ganga Rods Not Reportable 05/03/20 18:04 Platelet Estimate Consistent w auto 05/03/20 18:04 Clumped Platelets Not Reportable 05/03/20 18:04 Plt Clumps, EDTA Not Reportable 05/03/20 18:04 Large Platelets Not Reportable 05/03/20 18:04 Giant Platelets Not Reportable 05/03/20 18:04 Platelet Satelliting Not Reportable 05/03/20 18:04 Plt Morphology Comment Not Reportable 05/03/20 18:04 RBC Morphology Not Reportable 05/03/20 18:04 Dimorphic RBCs Not Reportable 05/03/20 18:04 Polychromasia Not Reportable 05/03/20 18:04 Hypochromasia Not Reportable 05/03/20 18:04 Poikilocytosis Not Reportable 05/03/20 18:04 Anisocytosis Not Reportable 05/03/20 18:04 Microcytosis Not Reportable 05/03/20 18:04 Macrocytosis Not Reportable 05/03/20 18:04 Spherocytes Not Reportable 05/03/20 18:04 Pappenheimer Bodies Not Reportable 05/03/20 18:04 Sickle Cells Not Reportable 05/03/20 18:04 Target Cells Not Reportable 05/03/20 18:04 Tear Drop Cells Not Reportable 05/03/20 18:04 Ovalocytes Rare 05/03/20 18:04 Helmet Cells Not Reportable 05/03/20 18:04 [place] Bodies Not Reportable 05/03/20 18:04 [place] Rings Not Reportable 05/03/20 18:04 Yovani Cells Not Reportable 05/03/20 18:04 Bite Cells Not Reportable 05/03/20 18:04 Crenated Cell Not Reportable 05/03/20 18:04 Elliptocytes Not Reportable 05/03/20 18:04 Acanthocytes (Spur) Not Reportable 05/03/20 18:04 Rouleaux Not Reportable 05/03/20 18:04 Hemoglobin C Crystals Not Reportable 05/03/20 18:04 Schistocytes Not Reportable 05/03/20 18:04 Malaria parasites Not Reportable 05/03/20 18:04 Dg Bodies Not Reportable 05/03/20 18:04 Hem Pathologist Commnt No 05/03/20 18:04 PT 14.8 Sec. (12.2-14.9) 05/03/20 18:04 INR 1.14 (0.87-1.13) H 05/03/20 18:04 APTT 27.1 Sec. (24.2-36.6) 05/03/20 18:04 Sodium 144 mmol/L (137-145) 05/05/20 04:34 Potassium 4.4 mmol/L (3.6-5.0) 05/05/20 04:34 Chloride 108.7 mmol/L (98-107) H 05/05/20 04:34 Carbon Dioxide 24 mmol/L (22-30) 05/05/20 04:34 Anion Gap 16 mmol/L 05/05/20 04:34 BUN 15 mg/dL (9-20) 05/05/20 04:34 Creatinine 1.1 mg/dL (0.8-1.3) 05/05/20 04:34 Estimated GFR > 60 ml/min 05/05/20 04:34 BUN/Creatinine Ratio 14 % 05/05/20 04:34 Glucose 125 mg/dL (75-100) H 05/05/20 04:34 POC Glucose 125 (70-105) H 05/04/20 21:55 Calcium 8.7 mg/dL (8.4-10.2) 05/05/20 04:34 Total Bilirubin 0.70 mg/dL (0.1-1.2) 05/05/20 04:34 AST 24 units/L (5-40) 05/05/20 04:34 ALT 15 units/L (7-56) 05/05/20 04:34 Alkaline Phosphatase 68 units/L (35-129) 05/05/20 04:34 Total Protein 6.3 g/dL (6.3-8.2) 05/05/20 04:34 Albumin 3.4 g/dL (3.9-5) L 05/05/20 04:34 Albumin/Globulin Ratio 1.2 % 05/05/20 04:34 [place]/IV: Voiding Method Indwelling Catheter IV Catheter Type [Left Forearm INT / Saline Lock ] Active Medications - Current Medications Current Medications: Generic Name Dose Route Start Last Admin Trade Name Freq PRN Reason Stop Dose Admin Acetaminophen 650 mg 05/03/20 18:55 Tylenol PO Q4H PRN Pain MILD(1-3)/Fever >100.5/GALLO Acetaminophen/Hydrocodone Bitart 1 each 05/04/20 17:27 Nixon 5/325 PO Q6H PRN Pain, Moderate (4-6) Albuterol 2.5 mg 05/03/20 18:55 Proventil IH Q4HRT PRN Shortness Of Breath Cefazolin Sodium 2 gm 05/04/20 15:00 Ancef/Sterile Water 2 Gm/20 Ml IV 05/05/20 23:00 PREOP NR Dextrose 50 ml 05/03/20 19:46 D50w (25gm) Syringe IV Q30MIN PRN Hypoglycemia Protocol Enoxaparin Sodium 40 mg 05/05/20 10:00 Enoxaparin SUB-Q QDAY DELIA Sodium Chloride 1,000 mls @ 100 mls/hr 05/03/20 19:00 05/04/20 07:39 Nacl 0.9% 1000 Ml IV 100 mls/hr DIRECT DELIA Administration Lactated Ringer's 1,000 mls @ 125 mls/hr 05/04/20 15:00 05/05/20 06:35 Lactated Ringers IV 125 mls/hr DIRECT DELIA Administration Insulin Human Lispro 0 unit 05/03/20 22:00 05/04/20 21:58 Humalog SUB-Q Not Given ACHS DELIA Protocol Losartan Potassium 50 mg 05/05/20 10:00 Cozaar PO QDAY DELIA Morphine Sulfate 2 mg 05/03/20 18:55 Morphine IV Q4H PRN Pain , Severe (7-10) Ondansetron HCl 4 mg 05/03/20 18:55 Zofran IV Q8H PRN Nausea And Vomiting Oxycodone/Acetaminophen 1 tab 05/04/20 17:27 Percocet 5/325 PO Q6H PRN Pain, Moderate (4-6) Pravastatin Sodium 80 mg 05/04/20 22:00 05/04/20 22:25 Pravachol PO 80 mg QHS DELIA Administration Prazosin HCl 1 mg 05/04/20 10:00 05/04/20 22:28 Prazosin PO 1 mg Q12HR DELIA Administration Sodium Chloride 10 ml 05/03/20 22:00 05/04/20 22:19 Sodium Chloride Flush Syringe 10 Ml IV 10 ml BID DELIA Administration Sodium Chloride 10 ml 05/04/20 18:00 Sodium Chloride Flush Syringe 10 Ml IV PRN DELIA
--- NOTE | 2020-05-05 13:07 | Discharge Summary ---
Providers - Providers Date of Admission: 05/03/20 18:55 Attending physician: RENNY NEVAREZ MD 05/03/20 17:33 Consult to Physician [CONS] Stat Comment: Consulting Provider: DEQUAN FIGUEROA Physician Instructions: Reason For Exam: femoral neck fracture left 05/04/20 15:35 Consult to Dietitian/Nutrition [CONS] Routine Physician Instructions: Reason For Exam: Reason for Consult: Malnutrition 05/04/20 17:29 Physical Therapy Evaluation and Treat [CONS] Routine Comment: Reason For Exam: post op evaluation Weight bearing status?: Full wt bearing Assistive devices?: Yes If so list: Walker Primary care physician: [employer] Hospitalization Condition: Stable Pertinent studies: - 05/[address] shows there is a nondisplaced fracture of the left femoral neck which extends from the basicervical region medially to the subcapital region laterally. No additional fractures are seen. There is no dislocation. 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 There is subcutaneous inflammation/edema overlying the left hip. Evaluation of the intrapelvic structures demonstrates severe prostatomegaly and moderate to severe calcific atherosclerosis. Prostatomegaly. - 05/03 Left hip xray shows Small linear lucency extending through the left femoral neck is suspicious for nondisplaced fracture. - 05/03 CT pelvis shows there is a nondisplaced fracture of the left femoral neck which extends from the basicervical region medially to the subcapital region laterally. No additional fractures are seen. There is no dislocation. 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 There is subcutaneous inflammation/edema overlying the left hip. Evaluation of the intrapelvic structures demonstrates severe prostatomegaly and moderate to severe calcific atherosclerosis. Prostatomegaly. Procedures: 05/04: fixation of fracture with cannulated screws Hospital course: 85 YO Male with HTN, DM, Severe Malnutrition, Osteopenia, ND x2 (1973, 1977) presents to ED for evaluation on on 05/03 after he slipped on a rug in his bathroom and landed on his left side where he felt immediate pain in his left hip and was unable to stand and experienced difficulty moving his left leg. Patient underwent hip x-ray which revealed a nondisplaced left hip fracture. On 05/04 Dr. Figueroa performed a fixation with cannulated screws of his left hip fracture. PT evaluated patient today and recommends home health physical therapy and he will be discharged with durable medical equipment (bedside commode and rolling walker). Please follow up with Dr. Figueroa id needed outpatient and follow up with your primary care provider within 1-2 weeks of discharge. (1) Closed fracture of neck of left femur Current Visit: Yes Status: Acute Qualifiers: Encounter type: initial encounter Qualified Code(s): S72.002A - Fracture of unspecified part of neck of left femur, initial encounter for closed fracture Plan to address problem: - 05/[address] shows there is a nondisplaced fracture of the left femoral neck which extends from the basicervical region medially to the subcapital region laterally. No additional fractures are seen. There is no dislocation. 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 There is subcutaneous inflammation/edema overlying the left hip. Evaluation of the intrapelvic structures demonstrates severe prostatomegaly and moderate to severe calcific atherosclerosis. Prostatomegaly. - 05/03 Left hip xray shows Small linear lucency extending through the left femoral neck is suspicious for nondisplaced fracture. - 05/03 CT pelvis shows there is a nondisplaced fracture of the left femoral neck which extends from the basicervical region medially to the subcapital region laterally. No additional fractures are seen. There is no dislocation. 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 There is subcutaneous inflammation/edema overlying the left hip. Evaluation of the intrapelvic structures demonstrates severe prostatomegaly and moderate to severe calcific atherosclerosis. Prostatomegaly. - 05/04 s/p fixation with cannulated screws of his left hip fracture - Will be discharged with HHPT, bedside commode and rolling walker (2) Scalp wound Current Visit: Yes Status: Acute Qualifiers: Open wound type: laceration Plan to address problem: -Sustained from ground-level fall prior to admit -Per nursing instructions (3) Diabetes Current Visit: Yes Status: Chronic Plan to address problem: -Patient states he has been off of his glipizide since 2018 per PCP -Follow up with your PCP (4) Hypertension Current Visit: Yes Status: Chronic Qualifiers: Hypertension type: essential hypertension Qualified Code(s): I10 - Essential (primary) hypertension Plan to address problem: - Blood pressure monitor per protocol - Restarted Cozaar (5) Severe malnutrition Current Visit: Yes Status: Chronic Plan to address problem: -Increase protein intake - Follow up with your PCP (6) HLD (hyperlipidemia) Current Visit: Yes Status: Chronic Plan to address problem: -Continue home statin Disposition: DC/[place]-06 HOME UNDER HOME HLTH Time spent for discharge: 35 Core Measure Documentation - Palliative Care Palliative Care/ Comfort Measures: Not Applicable - Core Measures Any of the following diagnoses?: history only Exam - Constitutional Vitals: Temp Pulse Resp BP Pulse Ox 99.0 F 78 19 142/61 93 05/05/20 09:34 05/05/20 09:34 05/05/20 09:34 05/05/20 09:34 05/05/20 09:34 General appearance: Present: no acute distress - EENT Eyes: Present: EOM intact ENT: hearing decreased - Neck Neck: Present: supple, normal ROM - Respiratory Respiratory effort: normal Respiratory: bilateral: CTA - Cardiovascular Rhythm: regular Heart Sounds: Present: S1 & S2. Absent: systolic murmur - Extremities Extremities: no ischemia, pulses intact, pulses symmetrical, No edema, normal temperature, normal color Peripheral Pulses: within normal limits - Abdominal General gastrointestinal: Present: soft, non-tender, non-distended, normal bowel sounds - Integumentary Integumentary: Present: warm, dry - Musculoskeletal Musculoskeletal: strength equal bilaterally - Psychiatric Psychiatric: cooperative - Neurologic Neurologic: CNII-XII intact - Allied Health Allied health notes reviewed: nursing, PT Plan Activity: advance as tolerated, up only with assistance Weight Bearing Status: Weight Bear as Tolerated Diet: diabetic, other (dietary supplements such as ensure) Special Instructions: record daily BP diary, physical therapy Durable Medical Equipment Needed Upon Discharge: Walker-Rolling, Bedside Commode Additional Instructions: Please contact your primary care physician or report to the nearest emergency department if you experience worsening symptoms. You dee l be discharged with home health PT and durable medical equipment. Please follow-up with your primary care physician within 1 to 2 weeks of discharge. Please follow-up with Dr. Figueroa as needed. Follow up with: JOSE GLASS MD [Primary Care Provider] - 3-5 Days DEQUAN FIGUEROA MD [Staff Physician] - 7 Days Prescriptions: HYDROcodone/APAP 5-325 [[place] 5/325] 1 each PO Q6HR PRN #12 tablet PRN Reason: Pain
[2020-05-05 16:34] VITALS: BP 167/66
--- NOTE | 2020-05-05 17:04 | Progress Note ---
Assessment and Plan continue PT and observation, may dc to home at anytime, f/u either in my office in 10 days or with local orthopedist in [place] Subjective Date of service: 05/05/20 Interval history: no major c/o's noted, wants to drive back to [place]... Objective Vital signs: Vital Signs - 12hr 05/05/20 05/05/20 05/05/20 09:34 10:00 16:29 Temperature 99.0 F 99.1 F Pulse Rate 78 69 Respiratory 19 18 Rate Blood Pressure 142/61 167/66 [Left] O2 Sat by Pulse 93 94 Oximetry Incision: healing, clean and dry Weight bearing status: as tolerated - Labs CBC & BMP: 05/05/20 04:34 05/05/20 04:34 Labs: Abnormal lab results 05/04/20 05/04/20 05/05/20 Range/Units 17:16 21:55 04:34 WBC 4.4 L (4.5-11.0) K/mm3 MCV 103 H (84-94) fl MCH 35 H (28-32) pg Plt Count 74 L (140-440) K/mm3 Chloride (98-107) mmol/L Glucose (75-100) mg/dL POC Glucose 114 H 125 H (70-105) Albumin (3.9-5) g/dL 05/05/20 05/05/20 Range/Units 04:34 16:43 WBC (4.5-11.0) K/mm3 MCV (84-94) fl MCH (28-32) pg Plt Count (140-440) K/mm3 Chloride 108.7 H (98-107) mmol/L Glucose 125 H (75-100) mg/dL POC Glucose 118 H (70-105) Albumin 3.4 L (3.9-5) g/dL
== END 2020-05-05 17:35 | disposition home health service (06) | DRG 480 ==
LOC: ED 15:16 → 3A 18:55 → 3B-SURG 19:40
PROVIDERS: ADMIT Internal Medicine; ATTEND Internal Medicine
PROC: 0QSC34Z Reposition Left Lower Femur with Internal Fixation Device, Percutaneous Approach (ICD-10-PCS; principal; 2020-05-04)
DX: S72.002A Fracture of unspecified part of neck of left femur, initial encounter for closed fracture (principal); E43 Unspecified severe protein-calorie malnutrition; I10 Essential (primary) hypertension; E11.9 Type 2 diabetes mellitus without complications; S01.91XA Laceration without foreign body of unspecified part of head, initial encounter; S08.0XXA Avulsion of scalp, initial encounter; E78.5 Hyperlipidemia, unspecified; W18.30XA Fall on same level, unspecified, initial encounter; Y93.89 Activity, other specified; Y92.89 Other specified places as the place of occurrence of the external cause; Y99.8 Other external cause status; Z87.891 Personal history of nicotine dependence; Z68.20 Body mass index [BMI] 20.0-20.9, adult; Z83.3 Family history of diabetes mellitus; Z82.49 Family history of ischemic heart disease and other diseases of the circulatory system; Z71.3 Dietary counseling and surveillance; Z79.4 Long term (current) use of insulin
CPT/HCPCS: 36415; 71045; 72192; 80048; 80053; 82962; 85007; 85025; 85027; 85610; 85730; 94760; 96374; 96375; G0378; A9270-GY; C1713; C1769; J1170; J1650; J2175; J2270; J2405; J2704; J7030; J7120